=== PATIENT | female | born 1945 | race Caucasian/White ===

== ENCOUNTER 2019-05-20 08:09 | Inpatient (IN) | payer MEDICARE ==
[2019-05-17 10:49] LABS: BASOPHILS # (AUTO) 0.03 x10^3/uL (0-0.1); BASOPHILS % (AUTO) 1 % (0-1); EOSINOPHILS # (AUTO) 0.12 x10^3/uL (0-0.4); EOSINOPHILS % (AUTO) 2 % (1-7); LYMPHOCYTES % (AUTO) 17 % (22-44); MD NO; MEAN CORPUSCULAR HEMOGLOBIN 32.9 pg (27.0-34.8); MEAN CORPUSCULAR HGB CONC 33.2 g/dL (32.4-35.8); MEAN PLATELET VOLUME 8.2 fL (7.4-10.4); MONOCYTES # (AUTO) 0.37 x10^3/uL (0.2-0.8); MONOCYTES % (AUTO) 6 % (2-9); NEUTROPHILS # (AUTO) 4.79 x10^3/uL (1.8-6.8); NEUTROPHILS % (AUTO) 75 % (42-75); PLATELET COUNT 228 x10^3/uL (130-400); RED BLOOD COUNT 4.91 x10^6/uL (3.82-5.3); RED CELL DISTRIBUTION WIDTH 15.3 % (9.6-15.2)
[2019-05-17 11:00] LABS: ALBUMIN 3.4 g/dL (3.4-5.0); ANION GAP 5 mmol/L (5-15); CALCIUM 8.5 mg/dL (8.5-10.1); CHLORIDE 107 mmol/L (98-107)
[2019-05-17 11:04] LABS: ALANINE AMINOTRANSFERASE 16 U/L (12-78); ALKALINE PHOSPHATASE 77 U/L (45-117); BILIRUBIN,TOTAL 0.5 mg/dL (0.2-1.0); CREATININE 1.03 mg/dL (0.55-1.02); TOTAL PROTEIN 7.3 g/dL (6.4-8.2)
[2019-05-17 11:07] LABS: INTERNATIONAL NORMALIZED RATIO 1.54 (0.93-1.1); PROTHROMBIN TIME 16.4 Seconds (9.6-11.5)
[~2019-05-20] VITALS: Ht 167.6 cm; Wt 81.8 kg
[~2019-05-20 08:09] MED LIST: ASPI-496 PO; BACITRACIN 50,000 UNIT ONE; BACITRACIN OINT 500U/GM, 15 GM ONE; BUPIVACAINE/PF-EPI 0.5% 1:200K ONE; GABA600T7 PO; citalopram PO; furosemide PO; lovenox PO; warfarin PO
[2019-05-20] MEDS ORDERED: LACTATED RINGERS 1,000 ML IV SCH (08:46)
[2019-05-20] MEDS ORDERED: IPRA3AMP30 INH (09:15)
[2019-05-20] MEDS ORDERED: VITA1TAB38 PO (09:15)
[2019-05-20] MEDS ORDERED: METO-282 PO (09:15)
[2019-05-20] MEDS ORDERED: ATOR-2 PO (09:15)
[2019-05-20] MEDS ORDERED: TOFA5TAB PO (09:15)
[2019-05-20] MEDS ORDERED: VITA1TAB19 PO (09:15)
[2019-05-20] MEDS ORDERED: SPIR25TA PO (09:15)
[2019-05-20] MEDS ORDERED: OMEP40CA42 PO (09:15)
[2019-05-20] MEDS ORDERED: [UNRECOGNIZED DRUG - CODE] PO (09:15)
[2019-05-20] MEDS ORDERED: MULT-658 PO (09:15)
[2019-05-20 09:40] LABS: INTERNATIONAL NORMALIZED RATIO 1.06 (0.93-1.1); PROTHROMBIN TIME 11.2 Seconds (9.6-11.5)
[2019-05-20] MEDS ORDERED: ROCURONIUM 10 MG/ML,10ML ONE (15:04)
[2019-05-20] MEDS ORDERED: NEOSTIGMINE 1 MG/ML, 10ML ONE (15:04)
[2019-05-20] MEDS ORDERED: GLYCOPYRROLATE 0.2MG/1ML, 5ML ONE (15:04)
[2019-05-20] MEDS ORDERED: CEFAZOLIN 1,000 MG ONE (15:04)
[2019-05-20] MEDS ORDERED: PROPOFOL 10 MG/ML, 20ML ONE (15:04)
[2019-05-20] MEDS ORDERED: SUCCINYLCHOLINE 20 MG/ML, 10ML ONE (15:04)
[2019-05-20] MEDS ORDERED: PHENYLEPHRINE 10 MG/ML ONE (15:04)
[2019-05-20] MEDS ORDERED: ONDANSETRON 2MG/ML, 2ML ONE (15:04)
[2019-05-20] MEDS ORDERED: FENTANYL PF 100 MCG/2ML ONE (15:04)
[2019-05-20] MEDS ORDERED: hydrALAzine 20 MG/ML, 1ML IV PRN (16:00)
[2019-05-20] MEDS ORDERED: HYDROmorphone 2 MG/ML, 1ML IVPush PRN (16:00)
[2019-05-20] MEDS ORDERED: FENTANYL PF 100 MCG/2ML IV PRN (16:00)
[2019-05-20] MEDS ORDERED: ALBUTEROL SULFATE 2.5 MG/3 ML NPPB PRN (16:00)
[2019-05-20] MEDS ORDERED: PROMETHAZINE 25 MG/ML, 1ML IV PRN (16:00)
[2019-05-20] MEDS ORDERED: OXYcodone 5 MG/5 ML ORAL.SOL UDC PO PRN (16:00)
[2019-05-20] MEDS ORDERED: MEPERIDINE/PF 25MG/ML,1ML IVPush PRN (16:00)
[2019-05-20] MEDS ORDERED: LABETALOL 5MG/ML, 20ML IV PRN (16:00)
[2019-05-20] MEDS ORDERED: MIDAZOLAM 1 MG/ML, 2ML IV PRN (16:00)
[2019-05-20] MEDS ORDERED: ACETAMINOPHEN 325 MG TABLET PO PRN (16:00)
== END 2019-05-20 21:00 | disposition home or self-care (01) | DRG 32 ==
LOC: ORIP 08:09 → 4NE 18:23
PROVIDERS: ADMIT Neurological Surgery; ATTEND Neurological Surgery
PROC: 00164J6 Bypass Cerebral Ventricle to Peritoneal Cavity with Synthetic Substitute, Percutaneous Endoscopic Approach (ICD-10-PCS; principal; 2019-05-20 11:30)
DX: G91.9 Hydrocephalus, unspecified (principal); J96.10 Chronic respiratory failure, unspecified whether with hypoxia or hypercapnia; I50.22 Chronic systolic (congestive) heart failure; D32.0 Benign neoplasm of cerebral meninges
CPT/HCPCS: 36415; 70450; 80053; 85025; 85610; 85730; 86850; 86900; 93005; C1729; G0378; J0690; J1100; J2405; J2704; J2710; J3010; C1727; C1894; J0330; J2370; J7120